=== PATIENT | male | born 1940 | race Caucasian/White ===

== ENCOUNTER → 2016-09-24 | Outpatient (CLI) | payer MEDICARE, BC | LOC: PCVCCLINIC 15:00 | PROVIDERS: ATTEND Internal Medicine | DX: R42 Dizziness and giddiness (principal); I25.5 Ischemic cardiomyopathy; I25.810 Atherosclerosis of coronary artery bypass graft(s) without angina pectoris; I10 Essential (primary) hypertension; E78.5 Hyperlipidemia, unspecified; E11.9 Type 2 diabetes mellitus without complications; J98.6 Disorders of diaphragm | CPT/HCPCS: 93005; G0463 ==

== ENCOUNTER → 2017-05-28 | Outpatient (CLI) | payer MEDICARE, BC | END | disposition home or self-care (01) | LOC: PCVCCLINIC 13:04 | PROVIDERS: ATTEND Internal Medicine | DX: I25.10 Atherosclerotic heart disease of native coronary artery without angina pectoris (principal); I25.5 Ischemic cardiomyopathy; I10 Essential (primary) hypertension; E78.2 Mixed hyperlipidemia; I65.23 Occlusion and stenosis of bilateral carotid arteries; J98.6 Disorders of diaphragm; I44.0 Atrioventricular block, first degree; E11.9 Type 2 diabetes mellitus without complications; Z95.1 Presence of aortocoronary bypass graft; Z90.49 Acquired absence of other specified parts of digestive tract; Z96.651 Presence of right artificial knee joint; Z87.891 Personal history of nicotine dependence; Z79.4 Long term (current) use of insulin; Z79.84 Long term (current) use of oral hypoglycemic drugs | CPT/HCPCS: 93005; G0463 ==

== ENCOUNTER → 2017-12-10 | Outpatient (CLI) | payer MEDICARE, BC | END | disposition home or self-care (01) | LOC: PCVCIMAG 13:07 | DX: I65.23 Occlusion and stenosis of bilateral carotid arteries (principal); I25.10 Atherosclerotic heart disease of native coronary artery without angina pectoris; I42.9 Cardiomyopathy, unspecified; R06.00 Dyspnea, unspecified; I08.3 Combined rheumatic disorders of mitral, aortic and tricuspid valves; I10 Essential (primary) hypertension; E11.9 Type 2 diabetes mellitus without complications; I25.5 Ischemic cardiomyopathy; E78.2 Mixed hyperlipidemia; J98.6 Disorders of diaphragm; Z95.1 Presence of aortocoronary bypass graft; Z87.891 Personal history of nicotine dependence; Z79.899 Other long term (current) drug therapy; Z79.84 Long term (current) use of oral hypoglycemic drugs; Z79.4 Long term (current) use of insulin | CPT/HCPCS: 93005; 93306; 93880; G0463 ==

== ENCOUNTER → 2018-07-19 | Outpatient (CLI) | payer MEDICARE, BC ==
[~2018-07-19] MED LIST: REGADENOSON 0.4 MG/5 ML DISP.SYRIN. IV ONE
--- NOTE | 2018-07-19 12:58 | PCVCIMAG ---
APPROVED REPORT Study performed: 07/19/2018 11:05:41 EXAM: Comprehensive 2D, Doppler, and color-flow Echocardiogram Patient Location: Echo lab Status: routine BSA: 2.13 HR: 61 bpmBP: 150/80 mmHg Rhythm: NSR Other Information Study Quality: Adequate Risk Factors: Cardiac Risk Factors: HTN, Hyperlipidemia, DM Indications CAD cabg 2D Dimensions IVSd: 15.27 (7-11mm)LVOT Diam: 21.97 (18-24mm) LVDd: 51.67 mm PWd: 10.85 (7-11mm)Ascending Ao: 30.63 (22-36mm) LVDs: 36.21 (25-40mm) Left Atrium: 51.25 (27-40mm) Aortic Root: 32.57 mm LV Single Plane 4CH: 46.08 % LV Single Plane 2CH: 50.73 % Biplane EF: 48.0 % Volumes Left Atrial Volume (Systole) Single Plane 4CH: 90.09 mLSingle Plane 2CH: 65.48 mL LA ESV Index: 38.00 mL/m2 Aortic Valve AoV Peak Godwin.: 2.09 m/s AO Peak Gr.: 17.55 mmHgLVOT Max P.09 mmHg LVOT Max V: 1.13 m/s DARVIN Vmax: 2.04 cm2 Mitral Valve IVRT: 86.51 ms TDI Medial E' Godwin.: 0.12 m/s Lateral E' Godwin.: 0.06 m/s Pulmonary Valve PV Peak Gr.: 5.31 mmHg Pulmonary Vein P Vein S: 0.62 m/sP Vein A: 0.27 m/s P Vein D: 0.68 m/sP Vein A Dur.: 141.9 msec P Vein S/D Ratio: 0.91 Tricuspid Valve TR Peak Godwin.: 3.07 m/s TR Peak Gr.: 37.65 mmHg Left Ventricle The left ventricle is normal size. Mild septal hypokinesis. There is normal left ventricular wall thickness. Left ventricular systolic function is mildly decreased. LVEF is 50%. Grade I - abnormal relaxation pattern. Right Ventricle The right ventricle is normal size. The right ventricular systolic function is normal. Atria Left atrium is mildly dilated. Right atrium is mildly dilated. Aortic Valve The aortic valve is trileaflet, mildly calcified Mild aortic regurgitation. There is no aortic valvular stenosis. Mitral Valve The mitral valve is normal in structure. Mild mitral valve regurgitation No evidence of mitral valve stenosis. Tricuspid Valve The tricuspid valve is normal in structure. Trace tricuspid regurgitation. Pulmonary artery pressure is 45mmHg. Pulmonic Valve The pulmonary valve is normal in structure. Trace pulmonic regurgitation. Great Vessels The aortic root is normal in size. IVC is normal in size and collapses >50% with inspiration. Pericardium There is no pericardial effusion. <Conclusion> Left ventricular systolic function is mildly decreased. Mild septal hypokinesis. LVEF is 50%. Mild diastolic dysfunction Both atria are mildly dilated. The aortic valve is trileaflet, mildly calcified. Mild aortic regurgitation. The mitral valve is normal in structure. Mild mitral valve regurgitation Trace tricuspid regurgitation. Pulmonary artery pressure of 45mmHg. There is no pericardial effusion.
--- NOTE | 2018-07-19 17:24 | PCVCIMAG ---
APPROVED REPORT Imaging Protocol: Rest Tc-99m/Stress Tc-99m 1 day Study performed: 07/19/2018 12:33:21 Indication: CAD , Chest pain, Idiopathic Cardiomyopathy Patient Location: Out-Patient Stress Nurse: Dipti Bhatt RN, Meredith Sin RN RI Tech:Nadine Yenchristine [facility] Ht: 5 ft 10 in Wt: 200 lbs BSA: 2.09 m2 HR: 58 bpm BP: 170/79 mmHg BMI: 28.6 Rhythm: SR, RBBB, First degree AV Block, Bifascicular block Medical History Medical History: HTN, Hyperlipidemia, CKD, Diabetes, Former Smoker Medications: Amlodipine, Atorvastatin, Methadone, Furosemide, Insulin, Metformin, Quinapril Allergies: NSAIDS Cardiac Risk Factors: Age Previous Cardiac Procedures: CABG 2016 Pretest Chest Pain Characteristics: No chest pain Exercise History: Physically active Physical Disabilities: Hips Resting Data Rest SPECT myocardial perfusion imaging was performed in supine position 45 minutes following the intravenous injection of 10.3 mCi of Tc-99m Sestamibi. Time of rest injection: 1200 Date: 07/19/2018 Administration Route: IV Administration Site: Right AC Pharmacologic Stress Pharmacologic stress test was performed by injecting Regadenoson 0.4 mg IV push over 10-15 seconds immediately followed by the intravenous injection of 34.9 mCi of Tc-99m Sestamibi. Time of stress injection: 1315 Date: 07/19/2018 Administration Route: IV Administration Site: Right AC Gated Stress SPECT was performed 45 minutes after stress injection. The images were gated to evaluate regional wall motion and calculate left ventricular ejection fraction. Stress Test Details Stress Test: Pharmacologic stress testing performed using 0.4 mg of regadenoson per 5 mL given IV over 10 seconds. Reason for pharmacologic stress test: physical limitation, hip injury with pain. HRMax Heart Rate (APMHR): 144 bpm Resting HR: 58 bpmTarget HR (85% APMHR): 122 bpm Max HR Achieved: 69 bpm % of APMHR: 47 Recovery HR: 65 bpm BP Resting BP: 170/79 mmHg Recovery BP: 168/73 mmHg ECG Resting ECG: SR, RBBB, First degree AV Block Stress ECG: SR, RBBB, First degree AV Block ST Change: None Maximum ST Deviation: 0 mm Arrhythmia: None Recovery ECG: SR, RBBB, First degree AV Block, Bifascicular block Recovery ST Change: None Recovery ST Deviation: 0 mm Recovery Arrhythmia: None Clinical Reason for Termination: Completed protocol Stress Symptoms: Lightheaded Exercise duration: 0 min 55 sec Symptoms resolved during recovery. Stress ECG Conclusion Clinical: Non-ischemic ECG: Non-ischemic Study Quality Study: Good Study Data Post stress, the left ventricular ejection was 59%.. SSS: 9 SRS: 7 SDS: 2 TID = 1.01. Perfusion No evidence of stress induced ischemia. 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 Nuclear Conclusion No evidence of stress induced ischemia. 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 Post stress, the left ventricular ejection was 59%. No prior study available for comparison. Interpreted by: Byron Briggs MD Electronically Approved: 07/19/2018 17:06:42 <Conclusion> Clinical: Non-ischemic ECG: Non-ischemic
== END | disposition home or self-care (01) ==
LOC: PCVCIMAG 12:40
PROVIDERS: ATTEND Internal Medicine
DX: I08.0 Rheumatic disorders of both mitral and aortic valves (principal); E11.9 Type 2 diabetes mellitus without complications; I25.10 Atherosclerotic heart disease of native coronary artery without angina pectoris; I25.5 Ischemic cardiomyopathy; I10 Essential (primary) hypertension; E78.2 Mixed hyperlipidemia; I65.23 Occlusion and stenosis of bilateral carotid arteries; J98.6 Disorders of diaphragm; Z95.1 Presence of aortocoronary bypass graft; Z87.891 Personal history of nicotine dependence; Z79.4 Long term (current) use of insulin; Z79.84 Long term (current) use of oral hypoglycemic drugs
CPT/HCPCS: 78452; 93005; 93017; 93306; A9500; G0463; J2785